=== PATIENT | female | born 1960 | race Caucasian/White ===

== ENCOUNTER 2016-08-21 15:48 | Emergency (ER) | payer BC ==
[2016-08-21 16:00] VITALS: BP 124/80
--- NOTE | 2016-08-21 16:56 | RAD ---
INDICATION: Right knee injury. TECHNIQUE: 4 views of the right knee were obtained. FINDINGS: The bones are in normal alignment. No fracture is seen. Joint spaces appear maintained. IMPRESSION: NO EVIDENCE FOR FRACTURE.
--- NOTE | 2016-08-21 17:13 | UC ---
Knee Pain HPI - HPI Summary HPI Summary: 55 female presents complaining of right knee pain that began several weeks ago after an injury at work. Patient states she had her foot planted but she twisted and pivoted feeling a pop in her lateral/posterior knee. She states since then she has been having increasing pain. She has tried taking OTC pain relief and icing her knee with some relief. She also states she has been doing stretches and thinks she has been over-doing it causing the pain to increase today 08/21/16. Patient denies any swelling, redness or bruising. She is able to bear weight and walk on it. She has full ROM with little pain. The pain is the worse when going from a sitting position to a standing position and when turning with walking. She also feels as though it is going to give out when walking. Describes it as throbbing and achey with intermittent sharp pains. Denies injury to hip and ankle besides the every day arthritis. - History of Current Complaint Chief Complaint: UCLowerExtremity Stated Complaint: KNEE INJURY Time Seen by Provider: 08/21/16 16:21 Hx Obtained From: Patient, Family/Sap Pi Architect - Onset/Duration: Sudden Onset, Lasting Weeks, Worse Since Severity Initially: Mild Severity Currently: Moderate Location Of Injury: right knee Pain Scale Used: 0-10 Numeric Character: Sharp, Aching, Throbbing Aggravating Factor(s): Movement, Weight Bearing, Prolonged Standing Alleviating Factor(s): Rest, Position, Cold, OTC Meds Associated Signs And Symptoms: Positive: Negative Able to Bear Weight: Yes - Allergies/Home Medications Allergies/Adverse Reactions: Allergies Allergy/AdvReac Type Severity Reaction Status Date / Time Sulfa Antibiotics Allergy Hives Verified 08/21/16 15:52 PMH/Surg Hx/FS Hx/Imm Hx Previously Healthy: Yes Respiratory History Of: Reports: Asthma - Surgical History Surgical History: Yes Surgery Procedure, Year, and Place: hysterectomy, cervical cancer. tonsillectomy @ age 13 - Family History Known Family History: Positive: Unknown - Social History Alcohol Use: Occasionally Substance Use Type: None Smoking Status (MU): Never Smoked Tobacco - Immunization History Most Recent Influenza Vaccination: 2015/2016 Review of Systems Constitutional: Negative Skin: Negative Eyes: Negative ENT: Negative Respiratory: Negative Cardiovascular: Negative Gastrointestinal: Negative Genitourinary: Negative Motor: Decreased ROM Neurovascular: Negative Musculoskeletal: Arthralgia - right knee, Decreased ROM, Myalgia Neurological: Negative Psychological: Negative All Other Systems Reviewed And Are Negative: Yes Physical Exam Triage Information Reviewed: Yes Appearance: Well-Appearing, No Pain Distress, Well-Nourished Vital Signs: Initial Vital Signs Temp 97.0 F 08/21/16 15:53 Pulse 70 08/21/16 15:53 Resp 17 08/21/16 15:53 BP 124/80 08/21/16 15:53 Pulse Ox 100 08/21/16 15:53 Vital Signs Reviewed: Yes Eyes: Positive: Conjunctiva Clear ENT Exam: Normal Neck: Positive: Supple, Nontender Respiratory: Positive: Chest non-tender, Lungs clear, Normal breath sounds, No respiratory distress Cardiovascular: Positive: RRR, No Murmur, Pulses Normal - 1+ bilateral pedal pulses, slightly diminished, Brisk Capillary Refill - <2 seconds Abdominal Exam: Normal Musculoskeletal: Positive: Strength Intact - 5/5 bilateral knee, foot, ankle. No deformity, dislocation, ecchymosis or edema noted. No crepitus or step-off of entire right extremitiy noted. Tenderness on palpation of right posterior and lateral knee. some radiation into calf. negative awa's sign. negative smiley test. sensation and skin intact. no redness noted. does not appear to be DVT related however was encouraged to have US at PCP or if symptoms worsen to rule out definitively., ROM Intact - painful with full flexion, No Edema, Other: - some laxity possible with LCL on exam, difficult to determine due to size Neurological Exam: Normal Psychological Exam: Normal Skin Exam: Normal Diagnostics - Radiology right knee x-ray Xray Interpretation: No Acute Changes - The bones are in normal alignment. No fracture is seen. Joint spaces appear maintained. Radiology Interpretation Completed By: Radiologist Knee Pain Course/Dx - Course Course Of Treatment: X-ray of right knee was obtained and negative. Patient was advised to get US if symptoms worsen or to definetively rule out DVT etiology although history and signs/symptoms did not appear to be a DVT. US was not availale at urgent care, urgent evaluation with US to r/o did not feel needed at this time. An immobilizer was given to patient to help with support during ambulation. Stressed importance of taking it off to avoid stiffness and worseing pain when not ambulating. Prescribed ibuprofen and reminded to ice, elevate and be seen by orthopedics next week. - Differential Dx/Diagnosis Differential Diagnosis/HQI/PQRI: Contusion, Dislocation, Fracture (Open), Infection, Sprain, Strain, Other - DVT Provider Diagnoses: right knee sprain Discharge - Discharge Plan Condition: Stable Disposition: HOME Prescriptions: Ibuprofen TAB* [Motrin TAB* 600 MG] 400 mg PO Q8H PRN #10 tab PRN Reason: Pain Patient Education Materials: Knee Sprain (ED), Knee Immobilizer (ED) Forms: *Work Release Referrals: Non Staff,Doctor [Primary Care Provider] - Leona Miranda MD [Medical Doctor] - Additional Instructions: Take prescribed ibuprofen with food as needed for pain and inflammation. Use knee immobilizer as needed for the next few days when working or ambulating. Take it off at night and be sure to keep moving it so it does not become stiff. Ice and elevate the knee. Make an appointment with orthopedics listed to have further imaging and evaluation. Follow-up with primary care is recommended. Watch for worsening signs/symptoms of redness, swelling, warmth, increased pain. If new symptoms begin or symptoms worsen please seek medical attention promptly.
== END 2016-08-21 17:56 | disposition home or self-care (01) ==
LOC: UCEAST 15:48
DX: S83.91XA Sprain of unspecified site of right knee, initial encounter (principal); X50.1XXA Overexertion from prolonged static or awkward postures, initial encounter; Y93.9 Activity, unspecified; Y92.9 Unspecified place or not applicable; Z88.2 Allergy status to sulfonamides
CPT/HCPCS: 99213; G0463

== ENCOUNTER → 2017-04-29 06:26 | Day surgery (SDC) | payer BC ==
[~2017-04-29 06:26] MED LIST: Bacitracin OINTMENT* 1 TUBE ONE; Bupivacaine 0.5% SDV PF* 30 ML VIAL ONE; Dexamethasone IV* 4 MG/ML 1 ML (4 MG) ONE; HYDROcodone/ACETAMIN 5-325 MG* 1 TAB ONE; HYDROmorphone INJ* 1 MG/ML CARPUJECT SYRINGE IV PRN; Ketorolac INJ* 30 MG/ML 1 ML VIAL IV PRN; Ketorolac INJ* 30 MG/ML 1 ML VIAL ONE; Lidocaine 2% PF * 5 ML VIAL ONE; Midazolam* 1 MG/ML 2 ML VIAL (2 MG) ONE; Ondansetron INJ* 2 MG/ML VIAL ONE; Propofol* 10 MG/ML 20 ML BTL IV PUSH ONE; Succinylcholine* 20 MG/ML 10 ML VIAL ONE; ceFAZolin 2 GM PREMIX (*) 50 ML IVPB ONE; fentaNYL* 50 MCG/ML 2 ML VIAL (100 MCG VIAL) IV PRN; fentaNYL* 50 MCG/ML 2 ML VIAL (100 MCG VIAL) ONE
[2017-04-29 11:20] VITALS: BP 138/78
--- NOTE | 2017-04-29 12:40 | OP ---
DATE OF OPERATION: 04/29/17 [facility] DATE OF : 58 SURGEON: Jesus Rizvi DPM CHICLE GRINDER FEEDER: None. ANESTHESIOLOGIST: Jean Paul Canada MD ANESTHESIA: General. PRE-OP DIAGNOSES: 1. 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 2. 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 3. Ankle equinus. POST-OP DIAGNOSES: 1. 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 2. 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 3. Ankle equinus. OPERATIVE PROCEDURE: 1. Excision of calcaneal spur, posterior calcaneus on the right. 2. Tendo-Achilles lengthening on the right. 3. Repair of the Achilles tendon with Mitek bone anchors on the right. INDICATIONS: The patient with chronic posterior right heel pain and with bony hypertrophy, Achilles tendinosis as well as partial tear and ankle equinus creating pain when walking wearing shoes. The patient has tried to live with this condition, but has pain in all closed heel shoes and while walking and opts for surgery this time to attempt to decrease the pain and improve her ability to wear closed heel shoe. PATHOLOGY: Degenerative bone and tendon. HEMOSTASIS: Pneumatic by tourniquet at 300 mmHg. DESCRIPTION OF PROCEDURE: The patient was brought to the operating room and general anesthesia was administered by the anesthesia department. The patient was then placed and secured in the prone position on the operating room table. The right foot, ankle, and leg was prepped and draped in the usual fashion and while elevating the right foot, an Esmarch bandage was utilized to exsanguinate the right foot and a pneumatic thigh tourniquet was inflated to 300 mmHg above a well-padded right thigh. Attention was directed to the posterior aspect of the right heel where a curvilinear incision was made from central to more lateral aspect of the right heel. The incision was deepened through subcutaneous tissues, care being taken to retract neurovascular structures and cauterize the superficial bleeders as needed. Dissection was carried down to the deep fascia and the distal Achilles tendon was noted to have calcific changes and significant hypertrophy of the posterior calcaneus. The Achilles tendon was reflected off the underlying osseous surfaces to allow for adequate exposure and resection of the posterior and posterior superior body of the calcaneus. This was done with a sagittal saw, rongeur and rough edges were burred smooth as well as using hand rasp. With adequate resection of the hypertrophic bone and adjacent degenerative tendon, it was determined for adequate reattachment of the tendon, a tendo-Achilles lengthening was necessary. Portion of the distal most tendon was maintained. Next, the paratenon was incised and the tendon lengthening was performed in the sagittal plane and the distal tendon was advanced to the desired position. Next, using 2 GII Mitek bone anchors inserted into the calcaneus and then used the associate suture to secure the Achilles tendon to the calcaneus. Size 0 Vicryl suture was also used to attach to the surrounding deep fascia. The Achilles tendon lengthening site was secured with 1 suture of Ethibond, braided nylon, and size 0 Vicryl suture. The paratenon was approximated with 4-0 Vicryl. It should be noted prior to the implanting of the Mitek bone anchors, the surgical site was flushed with copious amount of normal sterile saline. Prior to closure , the surgical site was again flushed with copious amounts of normal sterile saline. Subcutaneous tissues were reapproximated with 4-0 Vicryl and the skin was reapproximated and secured with 4-0 and 5-0 nylon. Next, peripheral nerve blocks were performed with 0.5% Marcaine plain and the surgical site was then dressed with Xeroform, 4x4 gauze, Leti, and light Coban wrap. Next, a well- padded fiberglass posterior splint was applied below the knee and secured with Vinny bandages while holding the ankle in a slightly plantar flexed position. The pneumatic thigh tourniquet was deflated and a prompt hyperemic response was noted by all 5 digits of the patient's right foot. The patient was then transferred back to supine position to the cart and the patient was extubated by the anesthesia department. Having appeared to tolerate the procedure and anesthesia well, the patient was transported via cart from the operating room to Recovery in satisfactory condition with capillary refill less than 3 seconds to all digits of the right foot. [id number]/[facility] #: [id number] [facility]
== END | disposition home or self-care (01) ==
LOC: OREAST 06:26
PROVIDERS: ATTEND Podiatrist Foot Surgery
DX: M76.61 Achilles tendinitis, right leg (principal); M77.31 Calcaneal spur, right foot; M92.61 Juvenile osteochondrosis of tarsus, right ankle; S86.011A Strain of right Achilles tendon, initial encounter; Y92.9 Unspecified place or not applicable; Y93.9 Activity, unspecified; X58.XXXA Exposure to other specified factors, initial encounter; Z87.891 Personal history of nicotine dependence; J45.20 Mild intermittent asthma, uncomplicated; Z68.35 Body mass index [BMI] 35.0-35.9, adult; M19.90 Unspecified osteoarthritis, unspecified site
CPT/HCPCS: 88304; 88311; A9270-GY; C1713; J0330; J0690; J1100; J1885; J2250; J2405; J2704; J3010

== ENCOUNTER 2019-07-21 09:09 | Emergency (ER) | payer BC ==
[2019-07-21 10:03] VITALS: BP 118/69
--- NOTE | 2019-07-21 10:44 | UC ---
Abdominal Pain Female HPI - HPI Summary HPI Summary: 58-year-old woman comes in with a chief complaint of left lower quadrant abdominal pain. Started 2 days ago. Had some chills overnight. No change in urination no burning with urination has not seen any blood in the urine. No flank pain. Patient had a kidney stone decades ago and reports this does not feel like a kidney stone. Pain is worse with movement and palpation. Better with rest. Reports decreased appetite. Reports normal bowels no blood in the stool seen. Has had a hysterectomy in the past. No history of diverticulitis. Denies feeling any lumps or bumps or evidence of a hernia. - History of Current Complaint Chief Complaint: UCGI Stated Complaint: LEFT SIDE PAIN Time Seen by Provider: 07/21/19 10:28 Pain Intensity: 6 Allergies/Adverse Reactions: Allergies Allergy/AdvReac Type Severity Reaction Status Date / Time MS Sulfa Antibiotics Allergy Intermediate Hives Verified 07/21/19 09:48 [Sulfa Antibiotics] PMH/Surg Hx/FS Hx/Imm Hx Previously Healthy: Yes Respiratory History: Asthma - Surgical History Surgical History: Yes Surgery Procedure, Year, and Place: hysterectomy, cervical cancer 1988. tonsillectomy @ age 13. 6/04/04-RIGHT KNEE MEISCUS REPAIR & left knee repair, right achilles tendon repair - Family History Known Family History: Positive: Unknown - Social History Alcohol Use: Occasionally Alcohol Amount: 1 GLASS WINE Substance Use Type: None Smoking Status (MU): Former Smoker Type: Cigarettes When Did the Patient Quit Smoking/Using Tobacco: 1984 - Immunization History Most Recent Influenza Vaccination: Review of Systems All Other Systems Reviewed And Are Negative: Yes Constitutional: Positive: Chills, Other - SEE HPI Skin: Positive: Negative Eyes: Positive: Negative ENT: Positive: Negative Respiratory: Positive: Negative Cardiovascular: Positive: Negative Gastrointestinal: Positive: Abdominal Pain, Other - SEE HPI Genitourinary: Positive: Negative Motor: Positive: Negative Neurovascular: Positive: Negative Musculoskeletal: Positive: Negative Neurological: Positive: Negative Psychological: Positive: Negative Is Patient Immunocompromised?: No Physical Exam Triage Information Reviewed: Yes Appearance: Well-Appearing, Well-Nourished, Pain Distress - MILD WITH ROM AND EXAM Vital Signs: Initial Vital Signs Temp 98.7 F 07/21/19 09:52 Pulse 76 07/21/19 09:52 Resp 16 07/21/19 09:52 BP 118/69 07/21/19 09:52 Pulse Ox 97 07/21/19 09:52 Vital Signs Reviewed: Yes Eye Exam: Normal Eyes: Positive: Conjunctiva Clear Neck: Positive: Supple Respiratory: Positive: Lungs clear, Normal breath sounds, No respiratory distress Cardiovascular: Positive: RRR Abdomen Description: Positive: Other: - Tender to palpation left lower quadrant. The rest of the abdomen is nontender to palpation.. Negative: CVA Tenderness (R), CVA Tenderness (L) Bowel Sounds: Positive: Hypoactive Musculoskeletal: Positive: Strength Intact, ROM Intact Neurological: Positive: Alert, Muscle Tone Normal Psychological: Positive: Normal Response To Family, Age Appropriate Behavior Skin Exam: Normal Abd Pain Female Course/Dx - Course Course Of Treatment: Shipping Clerk/Admin: Wolfgang Zuluaga F ([id number]) Pr Manager: TRACIE, ( NUANCE) Report Date: 07/21/2019 11:06:00 Report Status: Final ====== Start of Report Content Patient Name: SHIRAZ STANLEY Medical Record#: [id number] Ordering Physician: Selvin Newberry MD Acct.#: [id number] : Age: 58 Sex: F Location: [facility]RG[facility]ARE [facility] Exam Date: 07/21/19 1039 ADM Status: [facility] ER Order Information: CT ABD/PEL W/O Accession Number: [id number] CPT: 95776 INDICATION: Left lower quadrant abdominal pain and decreased appetite, hematuria. COMPARISON: There are no relevant prior studies available for comparison. TECHNIQUE: A CT scan of the abdomen and pelvis was performed without intravenous and without oral contrast. Contiguous axial sections were obtained from the lung bases through the symphysis pubis. Images were reconstructed in the coronal and sagittal planes. FINDINGS: LUNG BASES: The lung bases are clear. No pleural effusion is present. LIVER: The liver is mildly enlarged. The liver is decreased in attenuation consistent with fatty infiltration. No significant focal abnormality is seen on this noncontrast study. GALLBLADDER: There is mild increased density within the gallbladder consistent with sludge or gallstones. No gallbladder wall thickening or pericholecystic fluid is present. BILE DUCTS: No intra or extrahepatic ductal distention is seen. SPLEEN: The spleen is normal in size without significant focal abnormality. PANCREAS: The pancreas is normal in size. No ductal distention or calcifications are seen. ADRENAL GLANDS: The adrenal glands are normal in size. KIDNEYS: The kidneys are normal in size. No renal calculi or hydronephrosis is seen. AORTA: The aorta is normal in caliber with mild calcific plaque present. LYMPH NODES: No significantly enlarged lymph nodes are seen. BOWEL: The stomach, small and large bowel appear nondistended. The appendix appears to be within normal limits. There is mild to moderate descending and sigmoid diverticulosis. There is an area of thickening of the wall of the distal descending and proximal sigmoid colon with adjacent interstitial stranding surrounding this area. These findings are nonspecific although would favor diverticulitis. No abscess is seen. There is a small periumbilical hernia containing fat. PELVIC ORGANS: No bladder wall thickening is seen. The patient is status post hysterectomy. PERITONEUM: No free intraperitoneal air or fluid is seen. BONES: No significant focal osseous abnormality is seen. IMPRESSION: 1. THERE IS THICKENING OF THE WALL OF THE DISTAL DESCENDING AND PROXIMAL SIGMOID COLON WITH STRANDING IN THE ADJACENT MESENTERIC FAT. THESE FINDINGS ARE NONSPECIFIC ALTHOUGH MOST CONSISTENT WITH DIVERTICULITIS WITHOUT EVIDENCE FOR COMPLICATION. RECOMMEND A FOLLOW-UP COLONOSCOPY ONCE THE PATIENT'S SYMPTOMS HAVE RESOLVED. 2. MILD HEPATOMEGALY AND HEPATIC STEATOSIS. 3. INCREASED DENSITY WITHIN THE GALLBLADDER CONSISTENT WITH SLUDGE OR GALLSTONES. __ <Electronically signed by Wolfgang Zuluaga MD in OV> 07/21/19 1102 Dictated By : Wolfgang Zuluaga MD Dictated Date/Time: 07/21/19 1054 Transcribed Date/Time: 1054 Copy to: CC:Abhay CHAU; Selvin Newberry MD Imaging - [facility] Imaging - [facility] Imaging - [facility] [address] [facility] [place], [place] [id number] [place] [id number] [place] [id number] ph [phone]) ph ([phone]) ph ([phone]) End of Report Content ========= I discussed the CT results with the patient and her . Vital signs are stable no evidence of abscess or perforation at this time. CBC CMP drawn here in clinic. We'll treat with Cipro 500 mg by mouth twice a day for 10 days and Flagyl 500 mg by mouth 3 times a day for 10 days. Follow-up with primary care doctor. I discussed the risks of diverticulitis to include abscess and perforation and We discussed if she was not improving or worsening he needs to go the emergency department. - Differential Dx/Diagnosis Provider Diagnosis: Diverticulitis Discharge ED - Sign-Out/Discharge Documenting (check all that apply): Patient Departure All imaging exams completed and their final reports reviewed: Yes - Discharge Plan Condition: Stable Disposition: HOME Prescriptions: Ciprofloxacin TAB* [Cipro 500 MG TAB*] 500 mg PO BID #20 tab metroNIDAZOLE [Flagyl 500 MG TAB] 500 mg PO TID #30 tab Patient Education Materials: Diverticulitis (ED), Diverticulitis Diet (ED) Referrals: Abhay Chaudhary PA [Primary Care Provider] - Additional Instructions: FOLLOW UP WITH YOUR DOCTOR. GO TO THE EMERGENCY DEPARTMENT IF NOT IMPROVING OR WORSE; PAIN, FEVER, YOU FEEL ILL OR ANY QUESTIONS OR CONCERNS. - Billing Disposition and Condition Condition: STABLE Disposition: Home
[2019-07-21 20:09] LABS: ABS Basophils 0.1 10^3/ul (0-0.2); ABS Eosinophils 0.7 10^3/ul (0-0.6); ABS Lymphocytes 2.7 10^3/ul (1.0-4.8); ABS Monocytes 0.9 10^3/ul (0-0.8); ABS Neutrophils 5.4 10^3/ul (1.5-7.7); Eosinophil % 7.3 %; Hematocrit 41 % (35-47); Hemoglobin 13.4 g/dL (12.0-16.0); Lymphocyte % 27.1 %; Mean Corpuscular HGB Conc 33 g/dL (31-36); Mean Corpuscular Hemoglobin 28 pg (27-31); Mean Corpuscular Volume 85 fL (80-97); Mean Platelet Volume 10.1 fL (7.4-10.4); Nucleated Red Blood Cells % 0.2; Platelet Count 199 10^3/uL (150-450); Red Blood Count 4.77 10^6 /uL (3.70-4.87); Red Cell Distribution Width 15 % (10-15); White Blood Count 9.8 10^3/uL (3.5-10.8)
[2019-07-21 20:20] LABS: Albumin 4.2 g/dL (3.2-5.2); Calcium 9.7 mg/dL (8.6-10.3); Potassium 4.9 mmol/L (3.5-5.0); Total Bilirubin 0.7 mg/dL (0.2-1.0)
[2019-07-21 20:26] LABS: Albumin/Globulin Ratio 1.2 (1-3); BUN/Creatinine Ratio 13.8 (8-20); EGFR African American 80.6 (>60); EGFR Non-African American 66.6 (>60); Globulin 3.4 g/dL (2-4); Total Protein 7.6 g/dL (6.4-8.9)
== END 2019-07-21 12:13 | disposition home or self-care (01) ==
LOC: UCCORT 09:09
DX: K57.92 Diverticulitis of intestine, part unspecified, without perforation or abscess without bleeding (principal); J45.909 Unspecified asthma, uncomplicated; Z87.891 Personal history of nicotine dependence; Z88.2 Allergy status to sulfonamides
CPT/HCPCS: 36415; 74176; 80053; 81003; 85025; 99211; G0463